=== PATIENT | male | born 1955 | race Caucasian/White ===

== ENCOUNTER 2018-06-09 07:27 | Day surgery (SDC) | payer OTHER ==
[~2018-06-09 07:27] MED LIST: DIAZEPAM 5 MG TAB PO; DIPHENHYDRAMINE 50 MG CAP PO; FAMOTIDINE 20 MG TAB PO; SOD CHLORIDE 0.45% 1,000 ML IV
[2018-06-09 08:18] LABS: ADD MAN DIFF? NO
[2018-06-09 08:20] LABS: BASOPHILS % 0.6 % (0.0-2.0); EOSINOPHILS # 0.1 10^3/ul (0.0-0.5); EOSINOPHILS % 1.9 % (0.0-7.0); HEMATOCRIT 43.5 % (42.0-52.0); HEMOGLOBIN 14.4 g/dl (14.0-18.0); LYMPHOCYTES # 2.5 10^3/ul (0.8-2.9); LYMPHOCYTES % 35.7 % (15.0-51.0); MEAN CORPUSCULAR HEMOGLOBIN 29.6 pg (29.0-33.0); MEAN CORPUSCULAR HGB CONC 33.1 g/dl (32.0-37.0); MEAN CORPUSCULAR VOLUME 89.5 fl (82.0-101.0); MEAN PLATELET VOLUME 12.1 fl (7.4-10.4); MONOCYTE # 0.5 10^3/ul (0.3-0.9); MONOCYTES % 7.5 % (0.0-11.0); NEUTROPHIL # 3.7 10^3/ul (1.6-7.5); PLATELET COUNT 193 10^3/UL (140-415); RED BLOOD COUNT 4.86 10^6/ul (4.70-6.10); RED CELL DISTRIBUTION WIDTH 13.2 % (11.5-14.5)
[2018-06-09 08:20] LABS: WHITE BLOOD COUNT 6.9 10^3/ul (4.8-10.8)
[2018-06-09 08:39] LABS: INR 0.96; PARTIAL THROMBOPLASTIN TIME 28.8 Sec (25.0-35.0); PROTIME 12.9 Sec (11.9-14.9)
[2018-06-09 08:41] LABS: ANION GAP 13 (8-16); BLOOD UREA NITROGEN 13 mg/dl (7-20); CALCIUM 9.1 mg/dl (8.4-10.2); CARBON DIOXIDE 26 mmol/L (21-31); CHLORIDE 107 mmol/L (97-110); CHOL/HDL RATIO 3.5 RATIO; CHOLESTEROL 129 mg/dl (100-200); CREATININE 0.84 mg/dl (0.61-1.24); GLUCOSE 106 mg/dl (70-220); HDL CHOLESTEROL 36 mg/dl (30-78); LDL CHOLESTEROL,CALCULATED 77 mg/dl; POTASSIUM 4.1 mmol/L (3.5-5.1); SODIUM 142 mmol/L (135-144); TRIGLYCERIDES 81 mg/dl (0-149)
[2018-06-09] MEDS ORDERED: MIDAZOLAM 1 MG/ML 2 ML INJ (09:02)
[2018-06-09] MEDS ORDERED: LIDOCAINE 1% (MDV) 10 ML INJ (09:02)
[2018-06-09] MEDS ORDERED: IODIXANOL LOCM 100 ML BTL ×2 (09:02→09:59)
[2018-06-09] MEDS ORDERED: HEPARIN 1000 UNITS/ML 10 ML INJ (09:02)
[2018-06-09] MEDS ORDERED: FENTAnyl 50 MCG/ML VIAL (09:02)
[2018-06-09] MEDS ORDERED: VERAPAMIL 5 MG INJ (09:03)
[2018-06-09] MEDS ORDERED: NITROGLYCERIN (IC) 100 MCG/ML INJ (09:03)
[2018-06-09] MEDS ORDERED: ADENOSINE 30 ML (10:16)
[2018-06-09] MEDS ORDERED: AL HYDROX/MG HYDROX/SIMETH 30 ML CUP PO (11:00)
[2018-06-09] MEDS ORDERED: ACETAMINOPHEN 325 MG TAB PO (11:00)
[2018-06-09] MEDS ORDERED: morphine 2 MG INJ IV (11:00)
[2018-06-09] MEDS ORDERED: ONDANSETRON 4 MG INJ IV (11:00)
[2018-06-09] MEDS: SOD CHLORIDE 0.9% 1,000 ML IV (12:09)
== END 2018-06-09 15:51 | disposition home or self-care (01) ==
LOC: CCL 07:27 → SDS 07:27 → CCL 15:51
DX: I25.10 Atherosclerotic heart disease of native coronary artery without angina pectoris (principal)
CPT/HCPCS: 71045; 80048; 80061; 85025; 85610; 85730; 93005; 93458; 93571